=== PATIENT | female | born 1980 | race African-American/Black ===

== ENCOUNTER 2020-04-05 06:02 | Inpatient (IN) | payer OTHER, SELFPAY ==
[2020-04-05] VITALS (94 sets, daily range): BP systolic 91–183; BP diastolic 35–159; PULSE 54–199; RESP 16–18; TEMP 36.4–37; O2SAT 93–100; BMI 33.0
--- OUTSIDE RECORDS SUMMARY | 2020-04-05 06:07 | XMS_ITS | Encounter Summary ---
:1980 Author Reason for Visit OB visit Assessment and Plan 1. Multigravida of advanced mate rnal age 2. Hypothyroidism in Discussion Note: None recorded.Patient educational handouts: No information available. Plan of Care Reminders Provider Appointments None ? ? recorded. Lab None ? ? recorded. Referral None ? ? recorded. Procedures None ? ? recorded. Surgeries None ? ? recorded. Imaging None ? ? recorded. Medications Name Start Date ? ? fluticasone propionate 50 mcg/actuation nasal spray,feng spension ? levothyroxine 50 mcg tablet ? Take 1 tablet every day by oral route. montelukast 10 mg tablet ? ? Medications Administered None recorded. Vitals Height Weight BMI Blood Pressure 5 ft 7 in 211 lbs 33 kg/m2 125/78 mm[Hg] Results Lab Results None recorded. Allergies Code Code System Name Reaction Severity Onset 7052 RxNorm Morphine ? ? ? Problems Name Status Onset Date Source ? Active 09/29/2019 ? Hypothyroidism in Active 03/31/2020 ?
--- OUTSIDE RECORDS SUMMARY | 2020-04-05 06:07 | XMS_ITS | Encounter Summary ---
:1980 Author Reason for Visit OB visit Assessment and Plan Assessment Note Patient is ___weeks . Discu ssed plan. 1. Routine care Discussion Note: None recorded.Patient educational handouts: No [...] BMI Blood Pressure 5 ft 7 in 203 lbs 31.8 kg/m2 125/81 mm[Hg] Results Lab Results None recorded. Allergies Code Code System Name Reaction Severity Onset 7052 RxNorm Morphine ? ? ? Problems Name Status Onset Date Source ? Active 09/29/2019 ?
--- OUTSIDE RECORDS SUMMARY | 2020-04-05 06:07 | XMS_ITS | Encounter Summary ---
:1980 Author Reason for Visit OB visit Assessment and Plan Assessment Note Patient is ___weeks . Discu ssed plan. 1. Hypothyroidism in ? TSH, serum or plasma Discussion Note: None recorded.Patient educational handouts: No information available. Plan of Care Reminders Provider Appointments None ? ? recorded. Lab TSH, Serum [facility] or Plasma 02/06/2020 [facility] ([facility] ) Referral None ? ? recorded. Procedures None [...] BMI Blood Pressure 5 ft 7 in 194 lbs 30.4 kg/m2 112/74 mm[Hg] Results Lab Results Date Name Specimen Result Interpretation Description Value Range Status Address ? 02/06/2020 TSH, High TSH 5.31 0.27-4.20 Final [facility]
--- OUTSIDE RECORDS SUMMARY | 2020-04-05 06:07 | XMS_ITS | Encounter Summary ---
:1980 Author Reason for Visit OB visit 35wks 2days Assessment and Plan 1. Routine care Discussion Note: None recorded.Patient [...] BMI Blood Pressure 5 ft 7 in 206 lbs 32.3 kg/m2 126/81 mm[Hg] Results Lab Results None recorded. Allergies Code Code System Name Reaction Severity Onset 7052 RxNorm Morphine ? ? ? Problems Name Status Onset Date Source ? Active 09/29/2019 ? Hypothyroidism in Active 03/31/2020 ? Multigravida of Advanced Matern
--- OUTSIDE RECORDS SUMMARY | 2020-04-05 06:07 | XMS_ITS | Encounter Summary ---
[...] BMI Blood Pressure 5 ft 7 in 210 lbs 32.9 kg/m2 117/74 mm[Hg] Results Lab Results None recorded. Allergies Code Code System Name Reaction Severity Onset 7052 RxNorm Morphine ? ? ? Problems Name Status Onset Date Source ? Active 09/29/2019 ?
--- OUTSIDE RECORDS SUMMARY | 2020-04-05 06:07 | XMS_ITS ---
:1980 Author Care Team Providers Name Role Phone Quintin Ulloa Primary Care Provider Unavailable Allergies Code Code System Name Reaction Severity Status Onset 7052 RxNorm Morphine ? ? Active ? Medications Name Status Start Date Stop Date ? ? acyclovir 400 mg tablet Completed ? 09/29/19 20 doxycycline hyclate 100 mg capsule Completed ? 09/29/2019 fluticasone propionate 50 mcg/actuation Active ? Not available nasal spray,suspension ibuprofen 600 mg tablet Completed ? 09/29/19 levothyroxine 50 mcg tablet Active ? Not available montelukast 10 mg tablet Active ? Not stefanie ilable Active ? Not available Virtussin AC 10 mg-100 mg/5 mL oral Completed ? 09/29/2019 liquid Vitamin D3 Completed ? 03/31/2020 Problems Name Status Onset Date Source ? Active 09/29/2019 ? Hypothyroidism in Active 03/31/2020 ? Multigravida of Advanced Maternal Age Active 03/31/2020 ? Procedures Date Name Performed by ? 09/09/2019 US, Obstetric, Transvaginal [facility] [address] [place] [id number] ([address]) 09/09/2019 US, Obstetric, 1St Trimester [place] [address] [place] [phone] ([address]) 09/29/2019 US, Obst
--- OUTSIDE RECORDS SUMMARY | 2020-04-05 06:07 | XMS_ITS | Encounter Summary ---
:1980 Author Reason for Visit OB visit OB [id number] EDC 04/12/2020 LMP 07/07/2019 Assessment and Plan Assessment Note Patient is _37__weeks . Dis cussed plan. 1. Routine care Discussion Note: None [...] BMI Blood Pressure 5 ft 7 in 212 lbs 33.2 kg/m2 120/77 mm[Hg] Results Lab Results None recorded. Allergies Code Code System Name Reaction Severity Onset 7052 RxNorm Morphine ? ? ? Problems Name Status Onset Date Source ?
--- OUTSIDE RECORDS SUMMARY | 2020-04-05 06:08 | XMS_ITS | Encounter Summary ---
[...] BMI Blood Pressure 5 ft 7 in 190 lbs 29.8 kg/m2 100/65 mm[Hg] Results Lab Results None recorded. Allergies Code Code System Name Reaction Severity Onset 7052 RxNorm Morphine ? ? ? Problems Name Status Onset Date Source ? Active 09/29/2019 ?
--- NOTE | 2020-04-05 06:43 | WPDANESEPP ---
Anes - Eval Pre Procedure Procedure: Labor epidural Date/Time: 04/05/20 06:43 Surgeon: Artemio Preop Diagnosis: pain during labor Pre Op Diagnosis: IOL Patient Data Age: 39 Gender: F Height: Weight: Allergies Allergy/AdvReac Type Severity Reaction Status Date / Time morphine Allergy Difficulty Verified 03/22/20 14:27 Breathing Home Medications Medication Instructions Recorded Confirmed Type PNV cmb#95-ferrous fumarate-FA 1 tablet PO DAILY 03/22/20 03/22/20 History [] levothyroxine [Synthroid] 50 mcg PO DAILY 03/22/20 03/22/20 History loratadine [Claritin] 10 mg PO DAILY 03/22/20 03/22/20 History Patient hx anesthesia problems: none Family hx anesthesia problems: none PMFSH Past Medical History Medical History (Updated 04/05/20 @ 06:43 by Ami Chowdhury CRNA) IUP (intrauterine ), incidental Family History Family History (Updated 03/22/20 @ 14:24 by Elmer Bernstein RN) Other No pertinent family history Social History Social History Substance use: never Gender identity (if verbalized by the patient): Female Spiritual care concerns: No Exam Day of Procedure 04/05/20 06:43
[2020-04-05 07:07] LABS: Basophils Percent Auto 0.6 % (0.2-1.2); Eosinophils Absolute Auto 0.1 K/mm3 (0-0.3); Eosinophils Percent Auto 2.2 % (0-4.4); Hematocrit 31.7 % (37.0-47.0); Hemoglobin 10.3 g/dL (12.0-15.0); Immature Granulocyte Absolute 0.01 K/mm3 (0.00-0.031); Immature Granulocyte Percent A 0.2 % (0-0.5); Immature Platelet Fraction Pct 11.1 % (0.9-11.2); Lymphocytes Absolute Auto 1.68 K/mm3 (0.9-3.2); Lymphocytes Percent Auto 31.1 % (18.3-44.2); Mean Corpuscular HGB Conc 32.5 g/dl (32-36); Mean Corpuscular Hemoglobin 28.5 pg (26-34); Mean Corpuscular Volume 87.8 fl (80-100); Mean Platelet Volume 13.3 fl (7.4-10.4); Monocytes Absolute Auto 0.6 K/mm3 (0.1-0.6); Monocytes Percent Auto 10.7 % (2.6-8.5); Neutrophils Percent Auto 55.2 % (45.5-73.1); Platelet Count Result 124 k/mm3 (150-375); Red Blood Count 3.61 M/mm3 (4.2-5.4); White Blood Count 5.4 K/mm3 (4.5-10.0)
[2020-04-05] MEDS: OXYTOCIN 30 UNITS/NS 500 ML 30 UNITS/500 ML BAG IV CONT (07:12)
[2020-04-05] MEDS: LACTATED RINGERS 1,000 ML 125 ML IV CONT ×2 (07:12→10:32)
--- NOTE | 2020-04-05 08:09 | WPDOBADMIT ---
Obstetrics - Admit Note Admission Note: 39 y/o here for elective induction of labor Cervix /-2. Arom performed. Small amount of clear odorless fluid. record reviewed. No pertinent additions to the history and/or any subsequent changes in the physical findings that are not consistent with the expected course of the were found. Additions to the history and/or subsequent changes in the physical findings follow. None.
--- NOTE | 2020-04-05 08:16 | LDADM ---
This patient, Bijal Sage, was admitted to Labor/Delivery/Recovery 103 on 04/05/20 at 06:02. Plans for labor, pain management and were discussed with patient. Patient/family oriented to hospital policies and general routines including ID bracelet, bed and alarms, visiting hours, pain management, procedures, bathroom and other care routines, personal items, smoking policy, room service/diet and guest tray routines, security routines, and visiting hours. Patient/Family are encouraged to report perceived risks to care and to ask questions if they do not understand what they are told or what they should do. See OBIX for further documentation.
[2020-04-05 10:43] LABS: Platelet Count Result 118 k/mm3 (150-375)
[2020-04-05 10:53] LABS: Alanine Aminotransferase 9 U/L (4-35); Albumin Level 3.5 g/dL (3.5-5.1); Alkaline Phosphatase 161 U/L (38-126); Anion Gap 9 mmol/L (8-16); Aspartate Amino Transferase 26 U/L (14-36); Bilirubin,Total 0.1 mg/dL (0.2-1.3); Blood Urea Nitrogen 7 mg/dL (7-17); Calcium 8.7 mg/dL (8.4-10.2); Carbon Dioxide 24 mmol/L (22-30); Chloride 109 mmol/L (98-107); Estimated CRCL calculation 129 ml/min; Estimated Glomerular Filt Rate > 60; Glucose 78 mg/dL (65-105); Potassium 3.9 mmol/L (3.4-5.0); Sodium 142 mmol/L (137-145); Uric Acid 5.5 mg/dL (2.5-7.5)
[2020-04-05 12:29] LABS: Rapid Plasma Reagin Non-Reactive (NonReactive)
--- NOTE | 2020-04-05 14:38 | PM.OBPRVD ---
OB - Delivery Note Procedure Delivery date: 04/05/20 Intrapartal events: None Induction method: per pitocin protocol Delivery monitor: external FHT, external uterine and internal uterine Route of delivery: Episiotomy description: None Laceration Description: None Estimated blood loss (mL): 86 Anesthesia type: Epidural Baby Time of : 13:51 Weeks of gestation at delivery: 39 gender: Male Weight (pounds): 6 Weight (ounces): 12 presentation: vertex position: Left Occiput Anterior Placenta delivery description: Spontaneous cord vessel description: Nuchal Cord, Loose and Reduced Narrative: Delivery per Radhika SCHERER. Cord gasses collected and handed off to staff.
[2020-04-05] MEDS: OXYTOCIN 30 UNITS/NS 500 ML 30 UNITS/500 ML BAG 125 UNITS IV CONT (14:46)
--- NOTE | 2020-04-05 16:31 | PC.NURSE ---
Patient transferred to post room #281 via wheelchair. Support person present. Oriented to unit, room, information board, rooming in, admission packet and security measures. Patient verbalizes understanding.
[2020-04-05] MEDS: IBUPROFEN 600 MG TABLET PO (17:30)
--- NOTE | 2020-04-06 04:10 | PC.NURSE ---
04/05/2020 at 2200 Patient viewed the discharge video Mother & Baby Care, The First Two Weeks . Patient was given the opportunity and encouraged to ask questions. Patient verbalized understanding of information shared and has been given the mother/baby guide for home reference.
[2020-04-06 05:17] LABS: Hematocrit 27.4 % (37.0-47.0)
[2020-04-06] MEDS: LEVOTHYROXINE SODIUM 50 MCG TABLET PO (06:59)
[2020-04-06 07:35] VITALS: BP 144/71; PULSE 59; RESP 16; TEMP 37.5; O2SAT 97
[2020-04-06] MEDS: IBUPROFEN 600 MG TABLET PO ×2 (08:52→23:25)
--- NOTE | 2020-04-06 08:52 | PM.OBPNVD ---
OB - PN: Subj Subjective Date/time seen: 04/06/20 08:52 Patient comments: no complaints, pain well controlled, incisional pain, tolerating diet and flatus present OB - PN: Obj Data Labs CBC & Chem 7: 04/06/20 04:32 04/05/20 10:15 Labs: Laboratory Results - last 24 hr 04/05/20 04/05/20 04/05/20 06:47 06:47 10:15 Hgb Hct Plt Count 118 L MPV 13.0 H Sodium Potassium Chloride Carbon Dioxide Anion Gap BUN Creatinine Estim Creat Clear Calc Estimated GFR Glucose Uric Acid Calcium Total Bilirubin AST ALT Alkaline Phosphatase Total Protein Albumin RPR Non-reactive Blood Type O Positive Antibody Screen Negative 04/05/20 04/06/20 10:15 04:32 Hgb 9.0 L Hct 27.4 L Plt Count MPV Sodium 142 Potassium 3.9 Chloride 109 H Carbon Dioxide 24 Anion Gap 9 BUN 7 Creatinine 0.60 L Estim Creat Clear Calc 129 Estimated GFR > 60 Glucose 78 Uric Acid 5.5 Calcium 8.7 Total Bilirubin 0.1 L AST 26 ALT 9 Alkaline Phosphatase 161 H Total Protein 6.0 L Albumin 3.5 RPR Blood Type Antibody Screen OB - PN A/P Plan day: 1 Plan: routine care Comments: No problems, routine care Time Spent With Patient Time: Total time spent is greater than 50% in coordination of care (as documented) at patient's floor/unit and/or counseling patient: Exam Const: General: comfortable, no acute distress and alert Resp: Effort & Inspection: normal respiratory effort Auscultation: no crackles, no rales and no rhonchi Cardio: Rate: regular rate Heart sounds: no click, no murmurs and no rubs GI: Inspection: non-distended GI Palp: No Tenderness to palpation present (GI) Auscultation: normal bowel sounds Other: Incision - CDI Extrem: General: normal to inspection, no pedal edema and no calf tenderness
[2020-04-06] MEDS: MULTIVIT/MIN/PREN/FOL AC/IRON TABLET 1 TAB PO (10:07)
[2020-04-06] MEDS: POLYSACCHARIDE IRON COMPLEX 150 MG CAPSULE PO ×2 (10:07→16:51)
--- NOTE | 2020-04-06 13:46 | WPDANLDPN2 ---
Anes-Prog Note L&D Date/Time: 04/06/20 13:46 Comfortable throughout: labor and delivery Neuraxial method: epidural Epidural/Spinal procedure site: clean & non-tender Neuro status: Neuro function grossly intact. Cardiovascular status: normal Respiratory status: normal Airway patency: baseline Mental status: baseline Post-Op hydration status: normal Vital Signs: Last Vital Signs Temp 37.5 C 04/06/20 07:35 Pulse 59 L 04/06/20 07:35 Resp 16 04/06/20 07:35 BP 144/71 H 04/06/20 07:35 Pulse Ox 97 04/06/20 07:35 Pain score (VAS): 05/30 I/O: Intake & Output 04/05/20 04/06/20 04/06/20 23:59 07:59 15:59 Intake Total 1500 Balance 1500 Post-procedural complaints: none Patient feedback: Patient satisfied with anesthetic care.
[2020-04-06] MEDS: DOCUSATE SODIUM 100 MG CAPSULE PO (16:51)
[2020-04-06 19:30] VITALS: BP 130/87; PULSE 60; RESP 16; TEMP 36.3; O2SAT 100
[2020-04-07 08:00] VITALS: BP 147/74; PULSE 60; RESP 18; TEMP 37.2; O2SAT 100
--- NOTE | 2020-04-07 08:27 | P.PNOB_ITS ---
OB - PN: Subj Subjective Date/time seen: 04/07/20 08:27 Patient comments: no complaints baby status: doing well OB - PN: Obj Data Labs CBC & Chem 7: 04/06/20 04:32 04/05/20 10:15 OB - PN A/P Plan day: 2 Plan: routine care Comments: BP slightly elevated. Repeat PIH labs today. Time Spent With Patient Time: Total time spent is greater than 50% in coordination of care (as document ed) at patient's floor/unit and/or counseling patient: Time with patient: less than 15 minutes Review of Systems Review of Systems: All systems reviewed & are unremarkable except as noted in HPI and below Exam Narrative: Exam Narrative: Fundus firm and vaginal flow controlled. No lower e xt redness, warmth, or edema. Negative homans. Denies h/a, v/d or e/p. Reflexes normal. Const: General: comfortable Chest: Breast/axilla inspection: normal inspection of the breasts Resp: Effort & Inspection: normal respiratory effort Cardio: Rate: regular rate GI: GI Palp: Yes Soft to palpation Psych: Appearance: grossly normal Affect: normal affect Attitude: cooperative Thought content: Yes Normal thought content present Judgement: Good judgement present (Psych)
[2020-04-07] MEDS: MULTIVIT/MIN/PREN/FOL AC/IRON TABLET 1 TAB PO (09:20)
[2020-04-07] MEDS: DOCUSATE SODIUM 100 MG CAPSULE PO (09:20)
[2020-04-07] MEDS: IBUPROFEN 600 MG TABLET PO (09:20)
[2020-04-07] MEDS: POLYSACCHARIDE IRON COMPLEX 150 MG CAPSULE PO (09:20)
--- NOTE | 2020-04-07 09:53 | WPDANLDPN2 ---
Anes-Prog Note L&D Date/Time: 04/07/20 09:53 Comfortable throughout: labor and delivery Neuraxial method: epidural Epidural/Spinal procedure site: clean & non-tender Neuro status: Neuro function grossly intact. Cardiovascular status: normal Respiratory status: normal Airway patency: baseline Mental status: baseline Post-Op hydration status: normal Vital Signs: Last Vital Signs Temp 37.2 C 04/07/20 08:00 Pulse 60 04/07/20 08:00 Resp 18 04/07/20 08:00 BP 147/74 H 04/07/20 08:00 Pulse Ox 100 04/07/20 08:00 Pain score (VAS): 0 Post-procedural complaints: none Patient feedback: Patient satisfied with anesthetic care.
[2020-04-07 10:26] LABS: Hematocrit 30.7 % (37.0-47.0); Mean Corpuscular HGB Conc 32.6 g/dl (32-36); Mean Corpuscular Hemoglobin 28.7 pg (26-34); Mean Corpuscular Volume 88.2 fl (80-100); Mean Platelet Volume 12.1 fl (7.4-10.4); Platelet Count Result 118 k/mm3 (150-375); Red Blood Count 3.48 M/mm3 (4.2-5.4); Red Cell Distribution Width 14.2 % (11.5-14.5); White Blood Count 7.2 K/mm3 (4.5-10.0)
[2020-04-07 10:39] LABS: Alanine Aminotransferase 11 U/L (4-35); Albumin Level 3.3 g/dL (3.5-5.1); Alkaline Phosphatase 109 U/L (38-126); Anion Gap 6 mmol/L (8-16); Aspartate Amino Transferase 26 U/L (14-36); Bilirubin,Total 0.1 mg/dL (0.2-1.3); Blood Urea Nitrogen 8 mg/dL (7-17); Calcium 8.9 mg/dL (8.4-10.2); Carbon Dioxide 26 mmol/L (22-30); Chloride 107 mmol/L (98-107); Estimated CRCL calculation 129 ml/min; Estimated Glomerular Filt Rate > 60; Glucose 91 mg/dL (65-105); Sodium 139 mmol/L (137-145); Uric Acid 5.4 mg/dL (2.5-7.5)
[2020-04-07 11:45] VITALS: PULSE 60; RESP 18; O2SAT 100
[2020-04-08 11:17] VITALS: BP 124/69; PULSE 68; RESP 20; TEMP 37.3; O2SAT 100
--- NOTE | 2020-04-27 08:31 | PM.OBDSVD ---
DS: Admitting Diagnosis Admitting Diagnosis Admitting Diagnosis: IOL DS: Discharge Diagnosis Discharge Diagnosis (1) Vaginal delivery: Code(s): O80 - Encounter for full-term uncomplicated delivery Status: Acute OB - DS: Summary OB Procedures : None OB Procedures Intrapartum: Spontaneous Vag Delivery OB Procedures: : None Time Spent with Patient Time attestation: Total time spent providing and/or coordinating discharge services: DS: Data Data Completed and Pending Completed studies during hospitalization: Pending at discharge 04/05/20 13:55 Surgical [PTH] Routine Discharge Plan Discharge Consulting providers: Calista Wakefield Discharging Clinician: Calista Wakefield Patient Disposition: Home, Self-Care Activity: as tolerated Diet: regular Discharge Instructions: Education: Mom and Baby Guide Given to: Mother Follow-Up: Call your delivering provider's office for an appointment to be seen in: 4 Weeks Mom and baby should come to the [facility] for the follow-up appointment. Appointment Date/Time: April 08, 2020 at 9:00 am What to expect at your follow-up visit: Blood Pressure Check Physical Assessment Call [phone] if you are unable to keep your appointment time. BREAST CARE: * Wear a snug supportive bra. * For engorgement discomfort: Bottle Feeding: * May apply ice packs * No stimulation to breasts, even stand with back to the shower *May take Motrin for pain * Usually lasts about 72 hours EPISIOTOMY/PERINEAL CARE: * Until bleeding stops, use your shakeel bottle after urinating * Change your pad frequently throughout the day * You may take sitz baths several times a day (fill your bathtub with warm water and soak for 20 minutes.) Do NOT bathe in the water * No tub baths until seen by your physician - You may shower ACTIVITY: * Rest as much as possible. * Do not exercise or lift anything heavier than your baby (such as laundry or other children.) * Avoid stairs or driving as much as possible. * Do not put anything into the vagina. No douching, tampons, or sexual activity until seen by physician. NOTIFY PHYSICIAN IF YOU HAVE ANY QUESTIONS OR IF ANY OF THE FOLLOWING SYMPTOMS OCCUR: * If your perineum becomes red, swollen, or more painful than what you have experienced in the hospital. * If your vaginal bleeding becomes foul smelling. * If your vaginal bleeding becomes more heavy than a period or if your bleeding changes from pink to bright red. However, you may pass an occasional walnut-sized clot once or twice for the first week . * If you experience a sharp, shooting pain in your calves. * If you discover a hard, reddened area on your breast or if you experience flu-like symptoms. DIET: * Eat regular, well-balanced meals. * Drink plenty of fluids daily. If , drink to thirst. Stand Alone Forms: General Discharge Information Follow-up/Referrals: Calista Wakefield CNM [Certified Nurse Retail Management Trainee] - 4 Weeks Discharge Medications: New acetaminophen [Mapap (acetaminophen)] 325 mg Tablet 650 mg PO Q6H PRN (Reason: Mild Pain (1-3) Or Headache) RF: 0 Dermoplast (with menthol) 20-0.5 % Aerosol 1 spray topical PRN PRN (Reason: Perineal Discomfort) RF: 0 dibucaine 1 % Ointment 1 applic topical PRN PRN (Reason: Hemorrhoids) RF: 0 levothyroxine [Synthroid] 50 mcg Tablet 50 mcg PO DAILY@0630 RF: 0 docusate sodium 100 mg Capsule 100 mg PO BID PRN (Reason: Constipation) RF: 0 ibuprofen 600 mg Tablet 600 mg PO Q6H PRN (Reason: Cramping) RF: 0 Continued levothyroxine [Synthroid] 50 mcg Tablet 50 mcg PO DAILY RF: 0 Discontinued loratadine [Claritin] 10 mg Tablet 10 mg PO DAILY RF: 0 PNV cmb#95-ferrous fumarate-FA [] 28 mg iron- 800 mcg Tablet 1 tablet PO DAILY RF: 0 Other Ambulatory Orders: Platelet Count (Rou
== END 2020-04-07 15:25 | disposition home or self-care (01) | DRG 560 ==
LOC: ANHLDR 06:25 → ANHOB2 16:35
PROVIDERS: Advanced Practice Midwife; Admitting Provider Obstetrics & Gynecology; Visit Provider Obstetrics & Gynecology
DX: O69.81X0 Labor and delivery complicated by cord around neck, without compression, not applicable or unspecified (principal); Z3A.39 39 weeks gestation of pregnancy; Z37.0 Single live birth
CPT/HCPCS: 36415; 80053; 84550; 85014; 85018; 85025; 85027; 85049; 85055; 86592; 86850; 86900; 86901; 88307; A9270; J2590; J2795; J7120

== ENCOUNTER 2020-04-08 09:53 | Outpatient (CLI) | payer OTHER, SELFPAY ==
[2020-04-08 10:12] LABS: Mean Platelet Volume 11.7 fl (7.4-10.4); Platelet Count Result 141 k/mm3 (150-375)
== END 2020-04-08 09:54 | disposition home or self-care (01) ==
LOC: ANHOBOP 09:55
PROVIDERS: Visit Provider Advanced Practice Midwife
DX: O16.4 Unspecified maternal hypertension, complicating childbirth (principal); Z3A.00 Weeks of gestation of pregnancy not specified
CPT/HCPCS: 36415; 85049